=== PATIENT | male | born 1960 | race Caucasian/White ===

== ENCOUNTER 2018-10-05 00:22 | Inpatient (IN) ==
[2018-10-05] MEDS ORDERED: ASPIRIN 325 MG TABLET PO STA (01:02)
[2018-10-05] MEDS ORDERED: MORPHINE 4 MG/1 ML VIAL IV STA (01:02)
[2018-10-05] MEDS ORDERED: NITROGLYCERIN 2% OINT 1 INCH/GM PACK TOP STA (01:02)
[2018-10-05] MEDS ORDERED: ONDANSETRON 4 MG/2 ML VIAL IV STA (01:02)
[2018-10-05 01:45] LABS: Basophils % 0.5 % (0.0-0.8); Eosinophils % 0.5 % (0.00-10.9); Hematocrit 42.4 VOL% (42.0-52.0); Hemoglobin 15.3 GM/DL (14.0-18.0); Immature Granulocytes % 0.3 %; Immature Granulocytes Absolute 0.03 #; Lymphocytes # 1.2 10*3/uL (1.4-4.0); Lymphocytes % 13.3 % (21.2-54.2); Mean Corpuscular HGB Conc 36.1 GM/DL (32-36); Mean Corpuscular Hemoglobin 33 PG (27-34); Mean Platelet Volume 13.3 FL (9.6-12.0); Monocytes # 0.5 10*3/uL (0.11-0.8); Neutrophils % 79.4 % (38.7-73.9); Platelet Count 114 T/CUMM (130-400); Red Blood Count 4.66 MC/CUMM (3.8-5.5); Red Cell Distribution Width 12.2 % (9.3-17.3); White Blood Count 8.8 T/CUMM (4-12)
[2018-10-05 02:02] LABS: Bilirubin,Total 0.8 MG/DL (0.2-1.0); Osmolality,Calculated 282.3 MOS/KG (273-304); Potassium 3.9 MMOL/L (3.5-5.1); Total Protein 7.1 G/DL (6.4-8.3)
[2018-10-05 02:12] LABS: INR 0.9; PT Patient Result 9.1 SECS; Partial Thromboplastin Time 27.1 SECS (0-40)
[2018-10-05 02:16] LABS: Hypochromasia Slight; Platelet Estimate Adequate
[2018-10-05] MEDS ORDERED: MAGNESIUM SULF RIDER 4 GM in PREMIX 1 EACH IV PRN (02:56)
[2018-10-05] MEDS ORDERED: MAGNESIUM SULF RIDER 2 GM in PREMIX 1 EACH IV PRN ×2 (02:56→15:03)
[2018-10-05] MEDS ORDERED: ONDANSETRON 4 MG/2 ML VIAL IV PRN (02:56)
[2018-10-05] MEDS ORDERED: MORPHINE 4 MG/1 ML VIAL IV PRN (03:41)
[2018-10-05] MEDS ORDERED: NITROGLYCERIN SL 0.4 MG TABLET SL PRN (08:15)
[2018-10-05 08:37] LABS: Barbiturates Screen,Urine Negative (Negative); Benzodiazepines Screen,Urine Negative (Negative); Cannabinoid Screen,Urine Negative (Negative); Opiate Screen,Urine Negative (Negative); Phencyclidine Screen,Urine Negative (Negative)
[2018-10-05] MEDS ORDERED: DILTIAZEM CD 240 MG CAPSULE PO SCH (09:00)
[2018-10-05] MEDS ORDERED: PANTOPRAZOLE 40 MG TABLET PO SCH (09:00)
[2018-10-05] MEDS: ASPIRIN EC 81 MG TABLET PO SCH (09:44)
[2018-10-05] MEDS: CLOPIDOGREL 75 MG TABLET PO SCH (09:44)
[2018-10-05] MEDS: ISOSORBIDE MONONITRATE 30 MG TABLET PO SCH (09:44)
[2018-10-05] MEDS ORDERED: POTASSIUM CHLORIDE RIDER 10 MEQ in PREMIX 1 EACH IV PRN (15:03)
[2018-10-05] MEDS ORDERED: DIAZEPAM 5 MG TABLET PO ONE (15:03)
[2018-10-05] MEDS ORDERED: diphenhydrAMINE CAP 25 MG CAPSULE PO ONE (15:03)
[2018-10-05] MEDS ORDERED: diphenhydrAMINE CAP 25 MG CAPSULE PO PRN (15:19)
[2018-10-05] MEDS ORDERED: MAGNESIUM HYDROXIDE SUSP 30 ML UDCUP PO PRN (15:19)
[2018-10-05] MEDS: PANTOPRAZOLE 40 MG TABLET PO SCH (20:44)
[2018-10-05] MEDS ORDERED: ATORVASTATIN 40 MG TABLET PO SCH (21:00)
[2018-10-06 05:46] LABS: Basophils % 0.5 % (0.0-0.8); Eosinophils # 0.1 10*3/uL (0.0-0.87); Eosinophils % 0.8 % (0.00-10.9); Hematocrit 43.4 VOL% (42.0-52.0); Hemoglobin 15.2 GM/DL (14.0-18.0); Immature Granulocytes % 0.3 %; Immature Granulocytes Absolute 0.02 #; Lymphocytes % 24.8 % (21.2-54.2); Mean Corpuscular Hemoglobin 32 PG (27-34); Mean Corpuscular Volume 92.1 FL (87-102); Mean Platelet Volume 13.3 FL (9.6-12.0); Monocytes # 0.5 10*3/uL (0.11-0.8); Monocytes % 6.3 % (1.7-12.7); Neutrophils # 5.4 10*3/uL (1.4-7.4); Neutrophils % 67.3 % (38.7-73.9); Platelet Count 121 T/CUMM (130-400); Red Blood Count 4.71 MC/CUMM (3.8-5.5); Red Cell Distribution Width 12.3 % (9.3-17.3)
[2018-10-06 06:11] LABS: Calcium 9.1 MG/DL (8.5-10.1); Osmolality,Calculated 281.3 MOS/KG (273-304); Potassium 3.7 MMOL/L (3.5-5.1)
[2018-10-06] MEDS ORDERED: DIAZEPAM 5 MG TABLET PO ONE (06:30)
[2018-10-06] MEDS ORDERED: diphenhydrAMINE CAP 25 MG CAPSULE PO ONE (06:30)
[2018-10-06] MEDS: ASPIRIN EC 81 MG TABLET PO SCH (08:04)
[2018-10-06] MEDS: ISOSORBIDE MONONITRATE 30 MG TABLET PO SCH (08:04)
[2018-10-06] MEDS: CLOPIDOGREL 75 MG TABLET PO SCH (08:04)
[2018-10-06] MEDS: PANTOPRAZOLE 40 MG TABLET PO SCH (08:05)
[2018-10-06] MEDS ORDERED: HEPARIN/NACL 0.9% 2 UNITS/ML 1,000 ML IV ONE (08:55)
[2018-10-06] MEDS ORDERED: DILTIAZEM CD 180 MG CAPSULE PO SCH (09:00)
[2018-10-06] MEDS ORDERED: LIDOCAINE 1% 20 ML VIAL ONE (10:09)
[2018-10-06] MEDS ORDERED: NITROGLYCERIN DRIP 50 MG/250 ML BOTTLE IV ONE (10:09)
[2018-10-06] MEDS ORDERED: MIDAZOLAM 2 MG/2 ML VIAL ONE ×3 (10:09→11:02)
[2018-10-06] MEDS ORDERED: fentaNYL 100 MCG/2 ML VIAL ONE ×2 (10:10→11:02)
[2018-10-06] MEDS ORDERED: VERAPAMIL 5 MG/2 ML VIAL ONE (10:10)
[2018-10-06] MEDS ORDERED: HEPARIN 5,000 UNIT/1 ML VIAL ONE (10:31)
[2018-10-06] MEDS ORDERED: ACETAMINOPHEN/CODEINE 300-30 MG TABLET PO PRN (11:34)
[2018-10-06] MEDS ORDERED: ACETAMINOPHEN 325 MG TABLET PO PRN (11:34)
[2018-10-06] MEDS ORDERED: SODIUM CHLORIDE 0.9% 1,000 ML IV SCH (12:00)
[2018-10-06 15:46] VITALS: BP 114/71
== END 2018-10-06 15:54 | disposition home or self-care (01) | DRG 287 ==
LOC: N.ED 00:22 → N.EDINP 02:56 → N.ICU 03:32 → N.TELES 15:56
PROVIDERS: ADMIT Internal Medicine Cardiovascular Disease; ATTEND Internal Medicine Cardiovascular Disease
PROC: CLCCHCL (ICD-10-PCS; 2018-10-06 10:45)